=== PATIENT | female | born 1935 | race Caucasian/White ===

== ENCOUNTER 2019-12-04 17:44 | Inpatient (IN) | payer OTHER, BC ==
[~2019-12-04] VITALS: Ht 154.9 cm; Wt 46.8 kg
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
[2019-12-04 18:03] VITALS: BP 137/59
[2019-12-04] MEDS ORDERED: KEFLEX500 M1 PO (18:17)
[2019-12-04] MEDS ORDERED: ALLERGY RELIEF10 MG PO (18:20)
[2019-12-04] MEDS ORDERED: DEPAKOTE SPRIN125 MG PO (18:21)
[2019-12-04] MEDS ORDERED: DORZOLAMIDE 2%10 ML OPHTHALMIC (18:25)
[2019-12-04] MEDS ORDERED: HYDROCODON-ACE1 EAC8 PO (18:28)
[2019-12-04] MEDS ORDERED: LOPERAMIDE 2 MG2 MG PO (18:31)
[2019-12-04] MEDS ORDERED: MELATIN3 MG PO (18:39)
--- NOTE | 2019-12-04 19:00 | NUR ---
ASSISTED PT TO DINNING ROOM WITH JELLO AND WATER. PT POURED WATER OUT AND ATE JELLO. PT SEEMS INCREASED ANXIETY STATED SHE WANTED TO EAT. GOT PT A BOX LUNCH FOR DINNER.
[2019-12-04 19:30] VITALS: BP 143/62
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
--- NOTE | 2019-12-05 00:48 | NUR ---
PATIENT SLEPT FOR ONE HOUR AFTER HAVING GEODON 15MG IM. SHE HAS BEEN UP AND DOWN IN AND OUT OF HER BED SEVERAL TIMES SINCE THEN. PT UNABLE TO SLEEP AND REFUSING EYE DROPS AND PO MEDS. CALLED [facility] AND RECEIVED ORDER FOR ONE TIME DOSE OF ATIVAN 1MG IM. PT JUST LAID BACK DOWN AND IS QUIET. WILL GIVE IF UP AGAIN.
--- NOTE | 2019-12-05 02:12 | NUR ---
ATIVAN 1MG IM GIVEN AT 0111 AFTER PATIENT WAS UP AGAIN. TOILETED PATIENT AND THEN GAVE HER THE INJECTION IN LEFT DELTOID. PATIENT IS SLEEPING AT THIS TIME. BED IN LOW POSITION AND BED ALARM ON. SIDERAILS UP FOR SAFETY D/T SEDATION FROM MEDS. CONTINUING TO MONITOR.
[2019-12-05 07:40] VITALS: BP 119/49
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
[2019-12-05 14:57] VITALS: BP 119/49
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
[2019-12-05 21:11] VITALS: BP 182/75
--- NOTE | 2019-12-06 07:17 | NUR ---
PROGRESS PT ALERT TO SELF, COOPERATIVE WITH STAFF AT START OF SHIFT. CONFUSION NOTED ASSISTED PT TO BED HS MEDS GIVEN. REPOSITIONING SELF IN BED VOIDED X 1 IN TOLIET HAS PULL UPS AND PANTS ON. SKIN C/D/I RIGHT ARM HEALING SLIGHT PINK AND EDEMATOUS. CONTINUE TO MONITOR.
[2019-12-06 09:32] VITALS: BP 142/43
--- NOTE | 2019-12-06 17:04 | NUR ---
0715 ASSUMED CARE OF PATIENT ON 12/06/19. PATIENT SLEEPING IN BED. RECIEVED REPORT FROM GRADUATE ASSISTANT OF AGITATION FROM PATIENT AND MEDICATION GIVEN AT 0105 ON 12/06/19. VS WNL, LUNG SOUNDS CLEAR PATIENT DID NOT GET UP FOR BREAKFAST. 0900 PATIENT CONTINUES TO SLEEP APEARS TO BE DROWSY. DOES MOAN WHEN REPOSITIONED IN BED. 1010 DR[address] STODDARD AWARE OF PATIENT SLEEPING AND NOT UP FOR BREAKFAST. PATIENT CONTINUES TO SLEEP. 1045 PATIENTS SON HERE TO VISIT. SON AWARE OF PATIENTS BEHAVIOR DURING THE NIGHT AND PATIENT BEING MEDICATED. SON DID NOT STAY. 1110 DR PETERSEN NOTIFIED OF PATIENT SLEEPING AND NO MEDICATIONS RECIEVED THIS AM. PATIENT REPOSITIONED BRIEF NOTED TO BE DRY WITH NO URINE OUTPUT. WILL CONTINUE TO OBSERVE. 1200 PATIENT CONTINUES TO BE DROWSY AND SLEEP. UNABLE TO GET UP FOR LUNCH. 1300 VS CHECKED BP 116/56 P 62 O2 SAT 92-97%. PATIENT REPOSITIONED WITH NO OUTPUT.
--- NOTE | 2019-12-06 19:09 | NUR ---
AT 1840 PATIENT CONTINUES TO SLEEP IN BED. DR STODDARD UPDATED ON PATIENT STATUS. PATIENT UP IN WC TO DAYROOM DINNER REHEATED AND GIVEN TO PATIENT. PATIENT UPSET AND STARTED TO YELL WHEN CCIE AND TOOL AND DIE INSPECTOR ASSISTED TO WC. PATIENT IS ABLE TO STAY AWAKE NOW. PATIENT NOT EATING NOR DRINKING AT THIS TIME. WILL PASS ON FOR NEXT SHIFT TO CALL DR STODDARD WITH UPDATE ON PATIENT.
[2019-12-06 19:49] VITALS: BP 158/66
--- NOTE | 2019-12-07 06:17 | NUR ---
PROGRESS PT DROWSY AT START OF SHIFT SLEPT MOST OF DAY FROM BEING OVER SEDATED BY GEODON AND ATIVAN GIVEN SUNDAY NIGHT FOR AGITATION AND COMBATIVENESS. PT TOO DROWSY TO EAT BUT WILL DRINK FLUIDS WITH ASSISTANCE. PT BECOMING MORE ALERT TIME PASSES. BEHAVING APPROPRIATELY. VSS, UP WITH 1 TO MIKEIET PT IS A FALL RISK AND HER GAIT IS UNSTEADY AT THIS TIME. SLEPT THE REMAINDER OF SHIFT. MONITOR FLUID AND FOOD INTAKE TO MAKE SURE ADEQUATE INTAKE IS ACHIEVED.
[2019-12-07 09:21] VITALS: BP 151/52
--- NOTE | 2019-12-07 12:57 | NUR ---
ASSUMED CARE AT 0700 THIS MORNING. PT. IN BED, GOTTEN UP BY REAL ESTATE LISTING CONSULTANT'S. SHE IS DRESSED AND ON THE UNIT. SHE WAS PLEASANT AND COOPERATIVE THIS MORNING, TAKING HER MEDICATIONS CRUSHED AND IN YOGURT. AT 1200 SHE REFUSED HER ANTIBIOTIC AND HALDOL. DR. MANZO INFORMED. HE STATED HE WAS GOING TO TALK TO THE HOSPITALIST TO FIND OUT IF A IM ANTIBIOTIC IS IN ORDER. REFUSED HER EYE GTTS ALSO. PT. IS BELIGERENT THIS AFTERNOON.
[2019-12-07 20:00] VITALS: BP 128/53
--- NOTE | 2019-12-08 02:47 | NUR ---
PT CARE ASSUMED WITH PT IN BED AT ABOUT 1915.PT HAD A LARGE BM AND WAS ASSISTED WITH PERSONAL HYGIENE.PT RETURNED TO BED AND APPEARED TO BE SLEEPING.PT REFUSED MEDICATION AND ACCEPETED TO TAKE WITH APPLE SAUCE.PT REFUSED EYE DROP SAYING SHE DOESNOT KNOW IT AND DOES NOT WANT IT.PT CONTINUED TO BE IN BE AND APPEARED TO BE SLEEPING.PT GOT UO AT 0200 AND TRIED GETTING OUT OF BED.PT WAS REDIRECTED AND ASSSITED BACK TO BED.WILL CONTINUE TO MONITOR
[2019-12-08 07:50] VITALS: BP 140/54
--- NOTE | 2019-12-08 11:46 | NUR ---
REFUSED BREAKFAST AND ALL AM MEDS CLOSING MOUTH TIGHTLY AND STATING "NO I DON'T WANT IT" MULTIPLE REAPPROACHES BY VARIOUS STAFF BUT VONTINUES TO REFUSE. ORIENTED TO NAME ONLY-RESTLESS/FRUSTRATED MOOD STATING "I WANT TO GET BACK TO THE HOUSE -TAKE ME OVER THERE" DENIES C/O PAIN/DISCOMFORT. SKIN W/D. IMPULSIVE AEB GRABBING ON TO OTHERS THEY PASS BY AND ATTEMPTING TO GET UP ON OWN. VS WNL.GEODON 10MG IM IN LVG FOR MED REFUSAL,AGITATION AND SEVERE RESTLESSNESS AND IMPULSIVE BEHAVIORS.
[2019-12-08 13:19] LABS: HEMATOCRIT 42.2 % (37.0-47.0); HEMOGLOBIN 13.8 gm/dL (12.0-15.0); MCH 29.4 pg (26.0-34.0); MCHC 32.7 g/dL (28.0-37.0); MCV 89.9 fL (80.0-100.0); RBC 4.69 mil/uL (4.20-5.00); RDW 13.4 % (10.5-14.5); WBC 5.8 thou/uL (4.0-11.0)
[2019-12-08 13:27] LABS: CALCIUM 9.2 mg/dL (8.5-10.1); CREATININE 1.6 mg/dL (0.6-1.0); POTASSIUM 3.9 mmol/L (3.5-5.1)
[2019-12-08 13:32] LABS: ALBUMIN 4.1 g/dL (3.4-5.0); TOTAL BILIRUBIN 0.6 mg/dL (<0.1-1.0); TOTAL PROTEIN 7.8 g/dL (6.4-8.2)
--- NOTE | 2019-12-08 14:20 | NUR ---
ESTHER faxed updates for pt to [facility] OP. ESTHER team will continue to follow pt during her stay on this unit.
--- NOTE | 2019-12-08 14:22 | NUR ---
Shiv from [facility] called for an update on Tavia. Update was given. she tahnk me for all of the help I given her to have Tavia admitted to [facility].
[2019-12-08 20:36] VITALS: BP 153/65
--- NOTE | 2019-12-08 22:45 | H ---
[facility] [place] [address] HISTORY AND PHYSICAL Name: AFSHIN REDD Room #: 520A-A ADM IN M.R.#: [id number] Admission: 12/04/19 Attend Phys: Robby Crocker DO Discharge: Date of : 36 Report #: [id number] THIS REPORT FOR: //name// CC: Robby Jones DATE OF SERVICE: 12/05/2019 INPATIENT PSYCHIATRIC EVALUATION ATTENDING PHYSICIAN: Robby Crocker DO. FLAVOR ROOM WORKER: Ambrosio Wheeler MD. REASON FOR ADMISSION: Behavioral disturbance and dementia. SOURCES OF INFORMATION: [facility] notes, chart review. HISTORY OF PRESENT ILLNESS: This is an 84-year-old female residing at [facility] in [facility]. Inciting events are yesterday morning at 8:30 the patient was in dining room looking tired with the head down on the table during breakfast. After breakfast, staffs there observed her being assisted to room to use the bathroom. Once in her room, the patient refused being assisted in the bathroom and started shouting them to leave her alone. The patient stayed in her room for the next 5 hours. It was noticed that it was frustrating the patient, so the door was shut to her room. At 3:00 p.m. staff went to go check on the patient and left in the common area. The patient was right next to the door by refrigerator with her pants and briefs pulled down, squatting, about to go to the bathroom. The staff member acknowledged the patient. She was looking for the restroom direction. The patient refused and got very agitated while walking out of her room with her briefs and pants still pulled down. Once out of the room, by the door, the patient took off her pants and briefs and tossed them in front of her. The patient refused and walked towards and was sleeping in her bed. The patient walked around the room and seemed to look for something. She started yelling no and banged doors, the patient then started to leave the room, walked down the manuel towards 212. At this time, the day shift and evening shift were doing crossover. They noticed the patient was agitated. The patient went into room 212, person was sleeping in his recliner. This time day shift went into room, tried to approach the patient, with fresh briefs including pair of pants, the patient refused. Staff left the patient bathroom door open to create a barrier between the patient and the residents sleeping. The patient started throwing wipes and a pack of briefs from the 212 room. The team went to get her out of the room, so that was the [facility] [address] [place] [address] HISTORY AND PHYSICAL Name: AFSHIN REDD Room #: 520A-A ADM IN M.R.#: [id number] Admission: 12/04/19 Attend Phys: Robby Crocker DO Discharge: Date of : 36 Report #: [id number] event that led to her admission. She was put on 1:1. Last several days have been combativeness severe. The patient had been sent out on the [facility], diagnosed with urinary tract infection. LABORATORY DATA: From that visit: Sodium 148, potassium 4.0, chloride 103, bicarbonate 28, anion gap 9, glucose 104, BUN 16, creatinine 1.0, calcium 8.8, GFR 50.4, albumin 3.8, total protein 6.5, magnesium 2.0, ____ 13, alkaline phosphatase 68, AST 14, ALT 9, ammonia less than 10, total bilirubin 0.2, lactic acid 1.0. Hematology: CBC 4.8, H and H 11.8 and 37, platelet count 192. PT 50.39 and INR 1.2, PTT 33. Urine culture was contaminated specimen. Urinalysis showed positive leukocyte esterase, 6-10 wbc's, moderate bacteria. SOCIAL HISTORY: The patient does not have a history of alcohol, tobacco or recreational drug use. REVIEW OF SYSTEMS: Unable to obtain review of systems today. MEDICATIONS: At senior living include [place], loperamide, melatonin, timolol, tramadol, acetaminophen, calcium with vitamin D. cephalexin, cetirizine, Depakote Sprinkles 125 mg 2 times a day, I increased that to 500 mg 2 times a day, dorzolamide 1 drop in both eyes for glaucoma, hydrocodone 7.5/325 q. 6 hours p.r.n. PHYSICAL EXAMINATION: VITAL SIGNS: Today, temperature 36.2, pulse 54, respirations 20, BP 119/49. However, her saturations look good in the 90%, pulse in the 80s when checked. MUSCULOSKELETAL: Assisted gait with walker. Normal station. Osteophytes visible in hands, looks like she may have some distal cyanosis. MENTAL STATUS EXAMINATION: This is a well-developed, ill-appearing female, appearing at least stated age. Attention limited. Concentration limited. Speech is normal rate. Thought process is linear and goal oriented. Thought content rather confused, not focused on anything. Really unable to question well for SI, HI, auditory, visual or tactile hallucinations. Does not know the day of the week. Was not aware of the time, city. Insight impaired. Judgment impaired. Fund of knowledge well below average. FORMULATION: An 84-year-old female admitted from nursing facility with problematic behaviors and seen 12/03 in [facility]. UTI, Keflex 500 q. 8 hours x 7 days and Depakote started. Major Neurocognitivr Disorder- DX. Plan increase depakote to 500 mg po bid. gain collteral from son. evaluate and stabilize. Admitted per DPGLENN blackman. [facility] [address] [place] [address] HISTORY AND PHYSICAL Name: AFSHIN REDD Room #: 520A-A ADM IN ..#: [id number] Admission: 12/04/19 Attend Phys: Robby Crocker DO Discharge: Date of : 36 Report #: [id number] . ESTIMATED LENGTH OF STAY: 10-14 days. STRENGTHS: Insured. WEAKNESSES: Advanced dementia. <ELECTRONICALLY SIGNED> By: Robby Crocker DO 12/08/19 [id number] Robby Crocker DO /nt
--- NOTE | 2019-12-09 00:27 | NUR ---
ASSUMED CARE ON 12/08/19 @ 19:15, SITTING IN W/C IN THE DAY ROOM. TOOK MEDS IN ICE CREAM AND DRANK 2EACH 8 OZ CUPS OF WATER WITH SNACK AND MEDS. HRRR, LUNGS CTA, ABD SOUNDS N X 4Q. URINE OUTPUT NOTED TO BE CLEAR YELLOW. REFUSED EYE DROPS.
--- NOTE | 2019-12-09 05:54 | NUR ---
SLEPT6.6 HOURS
[2019-12-09 06:45] LABS: CALCIUM 9.1 mg/dL (8.5-10.1); CREATININE 1.5 mg/dL (0.6-1.0)
--- NOTE | 2019-12-09 11:25 | NUR ---
HAS CONTINED TO BE RESISITVE TAKING PO MEDS THIS AM-DID EAT APPROX 70 PERCENT OF BREAKFAST AND WILL TAKE PO FLUIDS AT TIMES-BUT AT TIMES WILL CLOSE MOUTH AND TURN HEAD AWAY AND REFUSE-0900 DEPAKOTE AND KEFLEX MIXED WITH YOGURT AND WITH MULTIPLE TRIES DID TAKE MAJORITY OF DOSE BY 1100-SON HERE AND THIS RN AND SON ATTEMPTED TO GIVE 1100 SEROQUEL FOR APPROX 30 MINUTES WITHOUT SUCESS. CONVERSATION RAMBLING,NONSENSICLE/NON-GOAL DIRECTED. INCONGRUENT LAUGHING AND SMILING-DENIES C/O PAIN/DISCOMFORT.TRANSFERS WITH SBA X 1-2 AT TIMES COMBATIVE AND RESISITVE WITH CARES.
[2019-12-09 16:32] VITALS: BP 97/78
[2019-12-09 19:37] VITALS: BP 114/78
--- NOTE | 2019-12-10 02:47 | NUR ---
ASSUMED CARE OF PATIENT ON 12/09/19 AT APPROXIMATELY 1915. PATIENT IS IN THE DAY ROOM IN W/C THAT PATIENT SELF PROPELS WITH NO ASSISTANCE. SHE APPEARS WITH A LABILE MOOD AND AFFECT. SHE IS PLEASANT WHEN SPOKEN TOO, YET WHEN REDIRECTED PATIENT BECOMES UPSET AND IRRITABLE. SHE IS NEATLY DRESSED, DENIES SI HI, DENIES FEELINGS OF DEPRESSION, BUT DOES REPORT ANXIETY AND STATES 'I DONT KNOW WHY.' SHE DENIED MEDICAL CONCERNS, DENIES PAIN, DOES NOT APPEAR TO BE IN DISTRESS. NURSING WILL MAINTAIN ALL PRECAUTIONS TO ENSURE SAFETY AT ALL TIMES.
[2019-12-10 09:02] VITALS: BP 118/41
--- NOTE | 2019-12-10 19:22 | NUR ---
HAS REMAINED RESISITIVE WITH TAKING PO MEDS-INTERMITENT EPISOE OF COMPLIENCE AND DID TAKE ALL SCHEDULED MEDS WITH THE EXCEPTION OF 1100 SEROQUEL-IMPULSIVE ATTEMPTING TO GET UP ON OWN. YELLING OUT A TIMES. WILL TAKE FOOD/FLUIDS AT TIMES AND AT OTHER TIMES TURNS HEAD AWAY. ORIENTED TO NAME ONLY-AMBULATED IN HALLWAY AND REPOSITIONED IN CHAIR/GERICHAIR ETC THROUGHOUT SHIFT
[2019-12-10 19:56] VITALS: BP 154/62
--- NOTE | 2019-12-11 04:45 | NUR ---
Assumed care of pt @ 1900. Calm et cooperative this shift. Took medications dissolved in thickened tea without difficulty. VSWNL. Ambulates via w/c. Health assessment with no abnormalities at present time. Currently resting in bed with eyes closed. Will continue to monitor per protocol.
[2019-12-11 09:19] VITALS: BP 138/85
--- NOTE | 2019-12-11 12:51 | NUR ---
ESTHER faxed updates to [place] [facility] OP for pt. ESTHER team will continue to follow pt during her stay on this unit.
--- NOTE | 2019-12-11 14:02 | NUR ---
0715 Sleeping without s/o distress. Combative with cares but calms down when left alone. Confused speech. Alert but disorientated X4. No speech/behavior suggestive of SI/HI. No symptoms of pain except when approached for cares when she becomes very agitated, trying to hit and bite. Breath sounds clear t/o, bilaterally equal. Color pink with brisk capillary and palpable peripheral pulses. Reg HR auscultated. Incontinent of yellow urine per brief. Active bowel sounds over soft, flat abdomen. Able to take several steps with assistance of 2 staff, gait unsteady. Placed in WC with lap mattie. Order obtained from Dr. Crocker for lap mattie. 1030 Very combative with instillation of eye gtts, required assistance of 3 staff, bruises on lower arms and eyelids. 1330 Mobilizes self in WC around unit without assistance. Compliant with meds crushed in yogurt or thickened tea. Very little intake for lunch.
[2019-12-11 19:36] VITALS: BP 142/58
--- NOTE | 2019-12-12 00:41 | NUR ---
PATIENT SAT UP IN WC WITH LAP LATOYA ON IN DINING ROOM TONIGHT UNTIL BED TIME. SHE WAS RESTLESS AND TRYING TO TAKE OFF HER SHIRT. SHE CALMED WHEN SPOKEN TOO CALMLY. SHE IS A/0 X 1. PATIENT WAS PLEASANT WHEN SPOKEN TOO OR LEFT ALONE. SHE DID BECOME COMBATIVE WITH CARES WHEN ASSISTING HER TO BED. SPOKE REASSURANCE OF HER SAFETY AND EXPLAINING EACH TASK WE WENT BUT PATIENT HAS DELUSIONS THAT PEOPLE ARE ATTACKING HER. CRUSHED PATIENT'S HS MEDS IN YOGURT. SHE INSISTED ON FEEDING HERSELF THE MEDS MIXED IN YOGURT. THIS NURSE TRIED TO HELP DIRECT SPOON TO HER MOUTH AND FINALLY LET HER TRY. SHE TOOK THE SPOON AND RUBBED THE MEDS/YOGURT ON TO HER HANDS AND ALL OVER FACE. SHE WAS COMBATIVE I TRIED TO CLEAN HER UP WITH WARM WET WASHCLOTH AND WAS HITTING AND YELLING. SHE REFUSED ANY LIQUIDS. RETURNED LATER WITH MEDS/YOGURT AGAIN AND WAS ABLE TO COAX PATIENT INTO TAKING THE SPOONFUL BY MOUTH AFTER SEVERAL ATTEMPTS. ASSISTED PATIENT TO BATHROOM AN HOUR LATER WHEN SHE SAT UP IN BED. WALKED HER TO BATHROOM WHERE SHE URINATED AND HAD A MODERATE SMEAR OF BM. ASSISTED PATIENT BACK TO BED AND SIDE RAILS UP FOR SAFETY AND BED IN LOW POSITION AND BED ALARM ON. PATIENT SLEEPING AT THIS TIME AND APPEARS COMFORTABLE WITHOUT ANY DISTRESS. CONTINUING TO MONITOR.
[2019-12-12 09:50] VITALS: BP 127/86
--- NOTE | 2019-12-12 12:11 | NUR ---
In tx it was discussed that pt's discharge should be Wed or Th of next week. SW contacted the Wellness nurse's line at [facility] and left a msg explaining she would like to arrange discharge for pt. SW team will continue to follow pt during her stay on this unit.
--- NOTE | 2019-12-12 13:02 | NUR ---
Date of Admission: 12/04/19 Date of Activity Therapy Assessment: 12/07/19 Activity Goal: Structure Initial Goal: 1 Group activity/day Weekly progress towards goal: Did not achieve goals Group participation level: None Behaviors observed: Patient has been exhibiting wandering behaviors during most groups. She frequently wheels her chair away from group once brought to group. Patient also becomes agitated easily. Plan: No change towards goal
--- NOTE | 2019-12-12 16:03 | NUR ---
PATIENT HAS BEEN IRRITABLE TODAY. WITH CONSISTENT PATIENCE AND EXPLANATION PATIENT WILL RESPOND TO CARES. AFTER MULTIPLE ATTEMPTS AT GIVING MEDICATIONS THIS MORNING PATIENT ENCOURAGED TO FEED SELF. MEDS CRUSHED AND PUT IN YOGURT AND IS MUCH MORE AGREEABLE WHEN SELF SUFFICIENT. EKG DONE AND TOLERATED WELL WITH CAREFUL REDIRECTION AND UNDERSTANDING. HAS BEEN COMPLIANT WITH MEDICATIONS BUT ONLY WHEN CRUSHED AND ADMINISTERED IN YOGURT OR PUDDING. WAS ABLE TO PLACE DROPS IN EYES AFTER LONG PERIOD OF TIME EXPLAINING AND REASSURING PATIENT OF THE IMPORTANCE OF DROPS FOR HER GLAUCOMA. PATIENT MANUVERS AROUND WITH WHEELCHAIR. SPOKE WITH SON AN ADVISED STAFF TO TAKE TIME WITH EMPOWERING HER TO CARE FOR HERSELF. CURRENTLY QUIET AND SITTING IN DINING AREA. SPOKE TO SON IN [place] VIA CORDLESS PHONE AND CONVERSATION WENT WELL.
[2019-12-12 19:20] VITALS: BP 140/53
--- NOTE | 2019-12-13 03:26 | NUR ---
ASSUMED CARE OF PATIENT ON 12/12/19 AT 1915, PATIENT IS ALERT AND ORIENTED X1-2. SHE APPEARS WITH A TENSE AFFECT AND LABILE MOOD. SHE CAN AT TIMES BE COMBATIVE WITH STAFF AND INTRUSIVE WITH OTHER PATIENTS. SHE SELF PROPELS IN A WHEELCHAIR. SHE RESPONDS TO DIRECT QUESTIONS THAT ARE SHORT AND WITH A NON AGGRESSIVE TONE WELL COMMANDS. SHE DENIED SI HI, NO SIGNS OF HALLUCINATIONS, DID NOT REPORT DEPRESSION OR ANXIETY. SHE DID NOT REPORT MEDICAL CONCERNS AND DOES NOT APPEAR TO BE IN DISTRESS. NURSING WILL MAINTAIN ALL PRECAUTIONS TO ENSURE SAFETY AT ALL TIMES.
[2019-12-13 09:12] VITALS: BP 126/42
--- NOTE | 2019-12-13 14:32 | NUR ---
0730 Sleeping without s/o distress. Becomes agitated and combative with cares and instillation of eye drops. Confused speech, unable to get answers to questions r/t orientation. Alert and calm when not disturbed and sitting in WC with lap mattie. No speech/gestures indicative of SI/HI. Breath sounds clear t/o, bilaterally equal. Reg HR auscultated. Color pink with brisk capillary refill and palpable peripheral pulses. Urine not visualized. Active bowel sounds over soft, flat abdomen. Bruises over wrists and eyelids with open areas after eye gtts instilled. 0900 Very resistant to AM meds, shutting lips tightly. When approached on third attempt shortly after 1000 she took meds eagerly in applesauce and drank 8 oz of thickened tea independently. 1400 Happy affect, pulling self in WC up and down hallways of unit. No s/o distress. Peer also assisting pushing her in WC at times.
[2019-12-13 20:54] VITALS: BP 140/48
--- NOTE | 2019-12-14 04:09 | NUR ---
Assumed care of pt @ 1900. Pt calm et cooperative this shift. Takes medications crushed in thickened juice without difficulty. VSWNL. Health assessment with no abnormalities other than previously charted. Ambulates halls via w/c. Denies SI/HI @ present time. Complains of not being able to "find my daddy". Pt did not get much restful sleep this evening. Currently up in w/c in dayroom. Will continue to monitor per protocol.
[2019-12-14 07:35] VITALS: BP 116/34
--- NOTE | 2019-12-14 12:39 | NUR ---
ASSUMED CARE OF PATIENT AT 0700 - PATIENT UP AND MANUVERING AROUND UNIT IN WHEELCHAIR. MAXI KLEIN APPLIED FOR SAFETY. PATIENT CONFUSED BUT PLEASANT AND COOPERATIVE. MEDICATIONS DISPENSED IN THICKENED APPLESAUCE FOR COMPLIANCE. TOLEARATED WELL. EYE DROPS ADMINISTERED WITHOUT INCIDENCE FOR HER GLAUCOMA. SON VISITED AND PATIENT AFFECT BRIGHT AND MOOD CALM AND PLEASANT. NO OUTBURSTS OR AGITATION NOTED TODAY. SPENT MOST OF THE DAY IN DINING BATISTA AND TRANSPORTING HERSELF AROUND THE UNIT WITH WHEELCHAIR. DOES NOT STAY STILL FOR TOO LONG. ENJOYS BEING IN CONSTANT MOTION -
[2019-12-14 19:56] VITALS: BP 104/62
--- NOTE | 2019-12-15 03:45 | NUR ---
1939 Pt. is up in W/C with lap mattie on. She is currently sitting in Day Room trying to converse with other patients. Speech is non-sensical. Affect flat. Follows commands with persistent coaching. No signs or symptoms of distress noted. 2114 Pt. took medications crushed in thickened apple juice. No choking or coughing noted during administration of medications. Eye drops were administered by this nurse. Pt. was cooperative for meds and eye drops. 2249 Pt. remains up in W/C in the Day Room. Head is bowed down intermittently and patient appears to be napping when this occurs. 2399 Pt. in bed laying on side and appears to be sleeping. Respirations are even and non-labored. Bruise to left eyelid remains darkened. Pt. denies pain and no signs or symptoms of pain noted.
[2019-12-15 09:03] VITALS: BP 115/47
--- NOTE | 2019-12-15 12:03 | NUR ---
DROWSY THIS AM-REFUSING TO GET UP FOR BREAKFAST AND PULLING AGAINST STAFF AND YELLING WHEN ATTEMPTING TO GET UP AND DRESSED FOR DAY-DID REMAIN IN ROOM SLEEPING UNTIL APPROX 1045-UP IN DAYROOM AT THIS TIME BUT IS SITTING WITH HEAD LOWERED AND EYES CLOSED. ORIENTED TO NAME ONLY. SPEECH INCOHERENT AT TIMES- DOES TAKE MEDS CRUSHED IN FOOD.FLUIDS. TRANSFERS WITH SBA X 1-2.
--- NOTE | 2019-12-15 13:09 | NUR ---
ESTHER faxed updates for pt to [facility]. ESTHER team will continue to follow pt during her stay on this unit.
[2019-12-15 16:05] LABS: HEMATOCRIT 44.2 % (37.0-47.0); HEMOGLOBIN 14.5 gm/dL (12.0-15.0); MCH 29.5 pg (26.0-34.0); MCHC 32.7 g/dL (28.0-37.0); MCV 90.2 fL (80.0-100.0); RBC 4.9 mil/uL (4.20-5.00); RDW 13.5 % (10.5-14.5); WBC 4.3 thou/uL (4.0-11.0)
[2019-12-15 16:16] LABS: CALCIUM 9.1 mg/dL (8.5-10.1); CREATININE 1.1 mg/dL (0.6-1.0); MAGNESIUM 2.2 mg/dL (1.8-2.4); POTASSIUM 5.1 mmol/L (3.5-5.1)
[2019-12-15 20:14] VITALS: BP 155/52
--- NOTE | 2019-12-16 02:52 | NUR ---
12/15/19 AT 2145. Pt. in bed but awakens easily. Pt. was able to take meds that were crushed and put in thickened apple juice. No coughing or choking noted with thickened liquids. Affect is flat and pt. was easily agitated with cares but was able to be redirected and she was ultimately cooperative. No s/s of delusional or paranoid behaviors. Pt. denies SI/HI/AH/VH.
[2019-12-16 06:51] LABS: HEMATOCRIT 41.4 % (37.0-47.0); HEMOGLOBIN 13.7 gm/dL (12.0-15.0); MCH 29.6 pg (26.0-34.0); MCHC 33.2 g/dL (28.0-37.0); MCV 89.1 fL (80.0-100.0); RBC 4.65 mil/uL (4.20-5.00); RDW 13.3 % (10.5-14.5); WBC 4.4 thou/uL (4.0-11.0)
[2019-12-16 07:01] LABS: MAGNESIUM 2.2 mg/dL (1.8-2.4)
[2019-12-16 07:04] LABS: POTASSIUM 3.9 mmol/L (3.5-5.1)
[2019-12-16 07:35] VITALS: BP 155/47
--- NOTE | 2019-12-16 10:05 | NUR ---
ESTHER confirmed with Shiv that [facility] will be coming today to assess pt, and that they discharge day and time is still for tomorrow. SW team will continue to follow pt during her stay on this unit.
[2019-12-16 20:00] VITALS: BP 130/64
--- NOTE | 2019-12-17 00:53 | NUR ---
ASSUMED CARE ON 12/16/19, SITTING IN A W/C WITH LAP LATOYA ON. COOPERATED WITH ASSESSMENT, TOOK MEDS CRUSHED IN PUDDING OR ICE CREAM, REFUSED EYE DROPS. HRRR, LUNGS CTA, ABD SOUNDS N X 4 Q. SMALLL BM NOTED TODAY, 12/16/19. UP AWAKE UNTIL 0100, AT THAT TIME EXPRESSED THAT SHE WAS TIRED AND AGREED TO GO TO BED. BED IN LOW POSITION, BED ALARM SET, WILL CONTINUE TO MONITOR Q 12 MINUTES FOR PATIENT SAFETY.
--- NOTE | 2019-12-17 06:03 | NUR ---
slept 5.1 hours
--- NOTE | 2019-12-17 07:30 | NUR ---
Assumed care of patient this am. Patient confused. Patients affect is blunted. Patient denies hi/si. Patient denies pain. Patient takes medications crushed in pudding. Patient slept 5.1 hours. Patient ambulates via wheelchair. Patients vital signs stable. Patients assessment shows clear breath sounds, active bowel sounds, and s1 s2 heard with auscultation.
[2019-12-17 09:03] VITALS: BP 116/52
[2019-12-17] MEDS ORDERED: TRAMADOL 50 MG50 MG PO (11:18)
[2019-12-17] MEDS ORDERED: DEPAKOTE SPRIN125 MG PO (11:19)
[2019-12-17] MEDS ORDERED: SEROQUEL 50 MG50 MG PO (11:19)
[2019-12-17] MEDS ORDERED: MELATONIN5 M1 PO (11:20)
--- NOTE | 2019-12-17 12:30 | NUR ---
Patient discharged to [facility]. Patient taken to facility by her son. Patient taken to car via wheelchair. Patients belongings and discharge instructions sent with patient. Report called to Xenia at [facility].
--- NOTE | 2019-12-17 12:42 | EKG ---
[facility] [place] [address] ELECTROCARDIOGRAM REPORT Name: AFSHIN REDD Room #: [facility]- ADM IN M.R.#: [id number] Admission: 12/04/19 Attend Phys: Robby Crocker DO Discharge: Date of : 37 Report #: [id number] THIS REPORT FOR: cc: Mukund Jones Ryan D. DO Lundgren, Craig H. MD [facility] ~ THIS REPORT FOR: //name// [facility] Test Date: 2019-12-12 Test Time: 14:23:54 Pat Name: AFSHIN REDD Department: Room: [facility] A Gender: F Supervisor [employer] Education: Christopher VENEGAS : 1935 Requested By: Robby Crocker Order Number: [id number] MD: Brendon Tinsley Measurements Intervals [place] Rate: 70 P: 84 DE: 121 QRS: 81 QRSD: 89 T: 87 QT: 409 QTc: 442 Interpretive Statements Sinus rhythm No significant abnormality No previous ECG available for comparison Electronically Signed On 12-12-2019 17:33:12 [facility] by Brendon Tinsley [email or web address] <ELECTRONICALLY SIGNED> By: Brendon Tinsley MD, FACC 02/07/20 1733 1423 1423 Brendon Tinsley MD, [facility] /EPI
== END 2019-12-17 12:06 | DRG 885 ==
LOC: SBH 17:44
PROVIDERS: Internal Medicine; ADMIT Psychiatry & Neurology Psychiatry
DX: F29 Unspecified psychosis not due to a substance or known physiological condition (principal); F01.51 Vascular dementia, unspecified severity, with behavioral disturbance; N39.0 Urinary tract infection, site not specified; G30.9 Alzheimer's disease, unspecified; K52.9 Noninfective gastroenteritis and colitis, unspecified; Z88.8 Allergy status to other drugs, medicaments and biological substances; Z79.2 Long term (current) use of antibiotics; Z79.891 Long term (current) use of opiate analgesic; Z79.899 Other long term (current) drug therapy
CPT/HCPCS: 10880